=== PATIENT | male | born 1960 | race Caucasian/White ===

== ENCOUNTER 2016-11-07 11:01 | Inpatient (IN) | payer OTHER ==
[~2016-11-07] VITALS: Ht 167.6 cm; Wt 51.3 kg
[2016-11-07 11:01] VITALS: BP 164/75
[~2016-11-07 11:01] MED LIST: CIPROFLOXACIN500 M3 PO; DARVOCET-N 1001 EACH PO; DURAGESIC1 EAC2 TOP; FENTANYL PA25 MCG/HR TRANSDERM; FLAGYL500 MG PO; HYDROCODON-ACE1 EAC9 PO; LORTAB 5 MG/5001 TA1 PO; PRILOSEC40 MG PO; PROBIOTIC1 EAC1 PO; VANCOMYCIN100 MG/ML PO
[2016-11-07] MEDS ORDERED: HYDROCODONE-APA1 TA1 PO (11:34)
[2016-11-07 11:55] LABS: BASOPHILS 0.6 % (0.0-2.0); EOSINOPHILS 1.6 % (0.0-3.0); HEMATOCRIT 41.3 % (42.0-52.0); HEMOGLOBIN 13.9 gm/dL (14.0-18.0); MCH 32.2 pg (26.0-34.0); MCHC 33.7 g/dL (28.0-37.0); MCV 95.7 fL (80.0-100.0); MONOCYTES 3.8 % (1.0-8.0); PLATELET COUNT 290 thou/uL (150-400); RBC 4.32 mil/uL (4.50-6.00)
[2016-11-07 12:02] LABS: MANUAL DIFF NO
[2016-11-07 12:03] LABS: CALCIUM 9.4 mg/dL (8.5-10.1); CREATININE 0.8 mg/dL (0.7-1.3); POTASSIUM 4.2 mmol/L (3.5-5.1)
[2016-11-07 12:07] LABS: ALBUMIN 3.7 g/dL (3.4-5.0); TOTAL BILIRUBIN 0.4 mg/dL (<0.1-1.0); TOTAL PROTEIN 7.6 g/dL (6.4-8.2)
[2016-11-07 12:35] LABS: URINE BILIRUBIN NEGATIVE (Negative); URINE BLOOD 3+ (Negative); URINE COLOR YELLOW; URINE GLUCOSE-RANDOM* NEGATIVE (Negative); URINE KETONES NEGATIVE (Negative); URINE LEUKOCYTES-REFLEX NEGATIVE (Negative); URINE PROTEIN (DIPSTICK) 1+ (Negative); URINE SPECIFIC GRAVITY 1.025 (1.003-1.035); URINE UROBILINOGEN 0.2 E.U./dl (0.2-1.0)
[2016-11-07 12:54] LABS: CASTS None Seen /LPF (None Seen); CRYSTALS None Seen /LPF (None Seen); SQUAMOUS 0-3 Few /LPF (0-3); URINE WBC-REFLEX 6-15 Few /HPF (0-5); YEAST-REFLEX Present (None Seen)
[2016-11-07 16:38] VITALS: BP 136/82
[2016-11-07 20:24] VITALS: BP 138/80
[2016-11-08] VITALS (10 sets, daily range): BP systolic 113–169; BP diastolic 60–89
[2016-11-09] VITALS: BP 144/70
[2016-11-09 04:50] VITALS: BP 134/85
[2016-11-09 07:20] VITALS: BP 122/70
[2016-11-09 13:20] VITALS: BP 122/70
== END 2016-11-09 13:43 | disposition home or self-care (01) | DRG 693 ==
LOC: ER 11:01 → EROBS 14:28 → 3N 14:28
PROVIDERS: Emergency Medicine
PROC: 0T768DZ Dilation of Right Ureter with Intraluminal Device, Via Natural or Artificial Opening Endoscopic (ICD-10-PCS; principal; 2016-11-08)
DX: N13.2 Hydronephrosis with renal and ureteral calculous obstruction (principal); E43 Unspecified severe protein-calorie malnutrition; F17.210 Nicotine dependence, cigarettes, uncomplicated; Z68.1 Body mass index [BMI] 19.9 or less, adult; Z88.1 Allergy status to other antibiotic agents; Z88.8 Allergy status to other drugs, medicaments and biological substances; Z91.018 Allergy to other foods; Z90.49 Acquired absence of other specified parts of digestive tract
CPT/HCPCS: 10096; 50010; 50101; 50478; 51776; 55415; 56815; 62110; 62900; 70005